=== PATIENT | female | born 1985 | race Caucasian/White ===

== ENCOUNTER → 2016-11-10 | Outpatient (CLI) | payer OTHER ==
[~2016-11-10] MED LIST: JOLI0.35 PO
[2016-11-10 10:33] LABS: FREE T4 1.06 NG/DL (0.76-1.46)
== END ==
LOC: CLAB 09:17
PROVIDERS: ATTEND Internal Medicine Endocrinology, Diabetes & Metabolism
DX: E04.2 Nontoxic multinodular goiter (principal)
CPT/HCPCS: 36415; 84439; 84443

== ENCOUNTER → 2017-02-08 | Outpatient (CLI) | payer OTHER ==
[2017-02-08 12:06] LABS: FREE T4 1.42 NG/DL (0.76-1.46)
== END ==
LOC: CLAB 02-07 15:38
PROVIDERS: ATTEND Internal Medicine Endocrinology, Diabetes & Metabolism
DX: E04.2 Nontoxic multinodular goiter (principal); R53.83 Other fatigue
CPT/HCPCS: 36415; 82306; 84439; 84443

== ENCOUNTER → 2017-03-19 | Outpatient (CLI) | payer OTHER ==
[2017-03-19 15:10] LABS: BACTERIA, URINE RARE /hpf; BLOOD, URINE NEG (NEG); GLUCOSE,URINE NEG (NEG); KETONE, URINE NEG (NEG); MUCUS URINE FEW /lpf (OCC); NITRITE,URINE NEG (NEG); PH, URINE 5.5 (5.0-8.5); SQUAMOUS EPITHELIAL CELL URINE <1 /hpf (0-5); URINE COLOR LIGHT-YELLOW (YELLW/STRAW)
== END ==
LOC: CLAB 14:48
PROVIDERS: ATTEND Family Medicine
DX: N39.0 Urinary tract infection, site not specified (principal); B96.20 Unspecified Escherichia coli [E. coli] as the cause of diseases classified elsewhere
CPT/HCPCS: 81001; 87077; 87086; 87186

== ENCOUNTER 2017-06-07 12:52 | Emergency (ER) | payer OTHER ==
[~2017-06-07] VITALS: Ht 170.2 cm; Wt 79.0 kg
[2017-06-07 12:55] VITALS: BP 126/77; PULSE 72; RESP 17; TEMP 99.1; O2SAT 100
--- NOTE | 2017-06-07 12:57 | PD ---
Physical Exam Date Seen by Provider: Jun 07, 2017 Time Seen by Provider: 12:56 Narrative 31 YOWF C/O SORE THROAT AND FEVER 100. SINCE LAST NIGHT. H/O STREP VS NOTED WAITING FOR BED PLACEMENT MDM Medical Record Reviewed: No Supervised Visit with JUAN: Yes Denys Pa Jun 07, 2017 12:57
--- NOTE | 2017-06-07 13:54 | PD ---
HPI Chief Complaint: ENT Complaint Time Seen by Provider: 13:53 Travel History International Travel<30 days: No Contact w/Intl Traveler<30days: No Traveled to known affect area: No History of Present Illness HPI 31-year-old female presents to emergency Department with complaint of sore throat and fever since last night. MAXIMUM TEMPERATURE of 100. Denies lump in throat, difficulty swallowing, unusual drooling. Denies nasal congestion, ear pain, body aches. Says she vomited one time this morning because she had nasty taste in her mouth and drainage from her throat. Denies continued vomiting. Denies abdominal pain. Reports headache. Has taken Tylenol for symptom management. Has no other medical complaints. Symptoms are mild in severity. Allergies to azithromycin, penicillin, amoxicillin. No other modifying factors or associated signs and symptoms. PFSH Past Medical History Cancer: No Cardiovascular Problems: Yes (NEUROCARDIOGENIC SYNCOPE) Diabetes: No Endocrine: No Genitourinary: No Hepatitis: No Hiatal Hernia: No Immune Disorder: No Musculoskeletal: No Neurologic: No Psychiatric: No Reproductive: No Respiratory: No Thyroid Disease: No ?: Not LMP: 05/27/17 : 1 Para: 1 Past Surgical History Abdominal Surgery: Yes (LAP., ) AICD: No Cardiac Surgery: No Section: Yes Ear Surgery: No Endocrine Surgery: No Eye Surgery: No Genitourinary Surgery: No Gynecologic Surgery: Yes (C-SECT. ) Joint Replacement: No Oral Surgery: Yes (WISDOM TEETH EXTRACTION) Pacemaker: No Thoracic Surgery: No Other Surgery: Yes (RIGHT [id number] AND 2ND DIGIT) Social History Alcohol Use: No Tobacco Use: No Substance Use: No Allergies-Medications (Allergen,Severity, Reaction): Coded Allergies: azithromycin (Verified Allergy, Severe, HIVES, 06/07/17) penicillin G (Verified Allergy, Severe, HIVES, 06/07/17) amoxicillin (Verified Allergy, Mild, SEVERE HEADACHE AND CONFUSION, 06/07/17 ) Reported Meds & Prescriptions Reported Meds & Active Scripts Active Magic Mouthwash Pediatric/Adult Liq (Lidocaine/Diphenhydr/Alum/Mg/Simeth) 60 Ml Susp 5 Ml SWISH-SWAL Q3HR PRN Each 5mL contains: Diphenydramine 4.5mg, Viscous Lidocaine 2% 10mg, Maalox Advanced Regular Strength 2.7ml Ibuprofen 800 Mg Tab 800 Mg PO Q6HR PRN Review of Systems Except as stated in HPI: all other systems reviewed are Neg Physical Exam Narrative GENERAL: Well-nourished, well-developed female patient, in no acute distress; afebrile, nontoxic-appearing; afebrile, nontoxic-appearing SKIN: Warm and dry. No rash. HEAD: Atraumatic. Normocephalic. EYES: Pupils equal and round. No scleral icterus. No injection or drainage. ENT: Mucosa pink and moist. Oral pharynx with erythema; without edema or exudates. No uvular edema. No uvular, palatal, or tonsillar deviation. Airway patent. EARS: Bilateral pinnae and external canals appear within normal limits. Bilateral tympanic membranes without erythema, dullness or perforation. NECK: Trachea midline. No lymphadenopathy. CARDIOVASCULAR: Regular rate. RESPIRATORY: No accessory muscle use. GASTROINTESTINAL: Flat. MUSCULOSKELETAL: No obvious deformities. No clubbing. No cyanosis. No edema. NEUROLOGICAL: Awake and alert. Oriented 3. No obvious cranial nerve deficits. Motor grossly within normal limits. Normal speech. Moves all extremities. 5/5 strength to all extremities. PSYCHIATRIC: Appropriate mood and affect; insight and judgment normal. Data Data Last Documented VS Vital Signs Date Time Temp Pulse Resp B/P (MAP) Pulse Ox O2 Delivery O2 Flow Rate FiO2 06/07/17 12:55 99.1 72 17 126/77 (93) 100 Room Air Orders Orders Group A Rapid Strep Screen (06/07/17 13:48) Influenzae A/B Antigen (06/07/17 13:48) Strep Culture (Group A) (06/07/17 14:00) MDM Medical Decision Making Medical Screen Exam Complete: Yes Emergency Medical Condition: Yes Medical Record Reviewed: Yes Differential Diagnosis Strep pharyngitis, viral illness, influenza, less likely peritonsillar abscess Narrative Course 31-year-old female complaining of of sore throat and low-grade fever. Patient is afebrile and nontoxic-appearing. Denies lump in throat, difficulty swallowing, unusual drooling. I offered the patient pain medication and she declined. Rapid strep, influenza ordered. 1529: Rapid strep and influenza negative. Ibuprofen and Magic mouthwash prescribed for home. Instructed patient to follow up with primary care provider. Patient verbalizes understanding and agreement with treatment plan. Patient is medically cleared and stable for discharge. Discussed reasons to return to the emergency department. Patient agrees with treatment plan. The patients vital signs are stable and the patient is stable for outpatient follow- up and treatment. Patient discharged home, stable and in no acute distress. Diagnosis Primary Impression: Viral pharyngitis Referrals: Primary Care Physician Patient Instructions: General Instructions, Pharyngitis (ED) Additional Instructions: Throw away and change your toothbrush 24 hours after starting antibiotics Get plenty of sleep/rest Rest your voice Drink plenty of fluids to prevent dehydration Use warm saltwater gargles to soothe throat pain Use an air humidifier/turn off ceiling fans Use throat lozenges as needed for sore throat Use ibuprofen or acetaminophen as needed to relieve pain and fever Follow-up with your primary care provider within 2-4 days Return immediately to the emergency department with worsening of symptoms Med/Other Pt SpecificInfo: Prescription(s) given Scripts Yehjkmkhpdgpzla-Bhotbubno-Dhs-Alum-Simeth Liq (Magic Mouthwash Pediatric/Adult Liq) 60 Ml Susp 5 ML SWISH-SWAL Q3HR Y for SORE THROAT, #60 ML 0 Refills Each 5mL contains: Diphenydramine 4.5mg, Viscous Lidocaine 2% 10mg, Maalox Advanced Regular Strength 2.7ml Prov: Kathy Scales 06/07/17 Ibuprofen (Ibuprofen) 800 Mg Tab 800 MG PO Q6HR Y for PAIN, #30 TAB 0 Refills Prov: Kathy Scales 06/07/17 Disposition: 01 DISCHARGE HOME Condition: Stable Kathy Scales Jun 07, 2017 13:54
[2017-06-07] MEDS ORDERED: IBUP800T23 PO (14:26)
[2017-06-07] MEDS ORDERED: MAGICPED SWISH-SWAL (14:26)
== END 2017-06-07 15:33 | disposition home or self-care (01) ==
LOC: NEPK 12:52
DX: J02.9 Acute pharyngitis, unspecified (principal)
CPT/HCPCS: 87081; 87804; 87880; 99283

== ENCOUNTER → 2018-02-19 | Outpatient (CLI) | payer OTHER ==
[~2018-02-19] MED LIST changes: +IBUP1TAB7 PO; -JOLI0.35 PO; +MAGICPED SWISH-SWAL
[2018-02-19 12:39] LABS: FREE T4 1.04 NG/DL (0.76-1.46)
== END ==
LOC: CLAB 11:52
PROVIDERS: ATTEND Family Medicine
DX: E03.9 Hypothyroidism, unspecified (principal)
CPT/HCPCS: 36415; 84439; 84443